=== PATIENT | female | born 1990 | race Caucasian/White ===

== ENCOUNTER 2016-07-27 10:13 | Emergency (ER) | payer OTHER ==
--- NOTE | 2016-07-27 11:54 | ED CLINICAL REPORT ---
Clinical Report - Physicians/Mid Levels [facility] [address] [place] [place] [address] 07/27/2016 10:14 Patient: SKY BETH Time Seen: 10:48. Arrived- By private vehicle. Historian- patient. HISTORY OF PRESENT ILLNESS Chief Complaint: "FLU". Is still present. It was abrupt in onset and has been constant. The illness is described as moderate. The patient has had a cough, nasal congestion, chills and muscle aches. Additional history - The patient has had contact with a sick mother and father. They have had similar symptoms. Similar symptoms previously: None. REVIEW OF SYSTEMS No chills, fever or sweats. All systems otherwise negative, except as recorded above. PAST HISTORY Problems: Sick Contact. Pneumonia. Medications: None. Allergies: No Known Drug Allergy. SOCIAL HISTORY Current every day light tobacco smoker (cigarette)- less than 1/2 a pack per day. History of occasional drug use: marijuana. No alcohol use. FAMILY HISTORY Both of her parents were diagnosed with Influenza recently. ADDITIONAL NOTES The nursing notes have been reviewed. PHYSICAL EXAM Vital Signs: 07/27/2016 10:21 BP: 121/79. HR: 103. RR: 20. O2 saturation: 100%. Temp: 99.3 F. Pain level now: 3/10. Have been reviewed. Appearance: Alert. Eyes: Pupils equal, round and reactive to light. ENT: Minimal, thin, clear nasal discharge present. Pharynx normal. Uvula midline. Neck: Normal inspection. Neck supple. No meningeal signs or lymphadenopathy. CVS: Normal heart rate and rhythm. Heart sounds normal. Respiratory: No respiratory distress. Breath sounds normal. Abdomen: Soft and nontender. No organomegaly. Back: Normal inspection. Skin: Skin warm and dry. Normal skin color. Normal skin turgor. Extremities: Extremities exhibit normal ROM. No calf tenderness. No lower extremity edema. 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 PROGRESS AND PROCEDURES Course of Care: I reviewed the results the patient's lab with her. She says that both her parents had positive tests performed. We discussed the potential benefits and risks of treatment for influenza I also encouraged her in the future to pursue immunizations. I provided her with a prescription for Tamiflu and we reviewed the potential benefits and risks of that. Given her parents diagnosis and her concern of exposing her children, I have provided her with a prescription of the medication in case today's test was a false negative. Patient/family counseled. Disposition: Discharged. Condition: stable. CLINICAL IMPRESSION Acute upper respiratory infection. INSTRUCTIONS Drink plenty of fluids. Warnings: GENERAL WARNINGS: Return or contact your physician immediately if your condition worsens or changes unexpectedly, if not improving as expected, or if other problems arise. Prescription Medications: Tamiflu 75 mg: take 1 capsule orally every 12 hours for 5 days. Dispense ten (10). No refills. Substitution is permissible. Follow-up: Follow up with your doctor in five days if not better. Call for an appointment. Understanding of the discharge instructions verbalized by patient. (Electronically signed by Yogi Garza MD 07/27/2016 18:15)
--- NOTE | 2016-07-27 11:54 | ED ORDER SUMMARY ---
..... Patient: SKY BETH OrderSheet [facility] VisitID: [id number] [address] [place] [address] 25y, F Registration Date/Time: 07/27/2016 ORDER SHEET Weight: 56.2 kg (stated) Allergies: No Known Drug Allergy GENERAL ORDERS: Rapid Influenza Screen (Nasal Pharyngeal) (GUM MAKER) Urgent (10:24 07/27/2016 Armando DEUTSCH) (Ack 10:26 NHouse ER Tech1) (10:45 SStcasi R.NLeticia) MEDICATION ORDERS: IV FLUIDS: ORDER SHEET NOTES: [Electronically signed by Jolene Guerrero R.N. (12:11 07/27/2016)] [Electronically signed by Yogi Garza MD (18:15 07/27/2016)] [Electronically locked/signed by Jolene Guerrero R.N. (12:11 07/27/2016)]
--- NOTE | 2016-07-27 11:54 | ED NURSING NOTES ---
Clinical Report - Nurses [facility] [address] [place] [address] 07/27/2016 10:14 Patient: SKY BETH TRIAGE Triage time 10:21. Acuity: LEVEL 4. Chief Complaint: FEVER, COUGH and BODY ACHES and known FLU EXPOSURE. --10:25 Jolene Guerrero R.N. 10:21 07/27/16. BP: 121/79. HR: 103. RR: 20. O2 saturation: 100%. Temp: 99.3 F. Pain level now: 09/16. --10:25 Jolene Guerrero R.N. Weight: 56.2 kg stated. Height/Length: 68 inches Per Patient. BMI: 18.8. --10:23 Jolene Guerrero R.N. Medications None. --10:22 Jolene Guerrero R.N. Allergies No Known Drug Allergy. --10:22 Jolene Guerrero R.N. History Arrived by private vehicle. Historian: patient. This started yesterday. Onset. (parents both dx with flu, on Tamiflu. Pt. sx started yesterday with headache, fever, cough, congestion, nausea). She has had contact with a sick individual. She has had chest congestion, chills, fatigue, a headache and vomiting. 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 PAST MEDICAL HX: Pneumonia. No history of chronic obstructive pulmonary disease. ( No flu vaccine this year). SOCIAL HX: Current every day heavy tobacco smoker (cigarette)- less than 1 pack per day. History of drug use: marijuana. (monthly). No alcohol use. She has had contact with a sick individual. No infectious disease exposure. FALL RISK ASSESSMENT: Fall risk assessment completed. No fall risk identified. NUTRITIONAL RISK ASSESSMENT: The nutritional risk assessment revealed no deficiencies. FUNCTIONAL ASSESSMENT: Functional assessment: no impairments noted. LEARNING NEEDS ASSESSMENT: The learning needs assessment revealed no barriers. SKIN INTEGRITY ASSESSMENT: Skin integrity risk assessment completed. No skin integrity risk identified. --10:25 Jolene Guerrero R.N. PROBLEMS: Pneumonia. --10:22 Jolene Guerrero R.N. Interventions ID band on patient. Droplet isolation precautions initiated. To treatment room. --10:25 Jolene Guerrero R.N. PHYSICAL ASSESSMENT GENERAL / NEURO / PSYCH: Alert. Oriented X 4. Appears in no acute distress. HEENT: Mucous membranes are pink. RESPIRATORY: Respirations not labored. Chest nontender. Breath sounds within normal limits. CVS: Normal sinus rhythm noted. Capillary refill less than 2 seconds. Pulses within normal limits. GI / : The patient has had nausea. Abdomen soft and nontender. SKIN: Skin intact. Skin is warm and dry. Hot skin. --10:40 Jolene Guerrero R.N. NURSING PROGRESS NOTES Head of bed elevated. Reassurance given. Patient ID band checked for patient name and birthdate: patient confirmed. Flu swab obtained by RN via nasal swab. Labeled in the presence of the patient and sent to lab. Patient identifiers checked. Call light placed in reach. Side rails up. Bed placed in lowest position. Brakes of bed on. Patient waiting for evaluation. --10:30 Jolene Guerrero R.N. DISPOSITION / DISCHARGE Departure time: 12:01. Condition at departure: stable. Reviewed medication(s) side effects information. Prescription(s) given to the patient. Patient verbalized understanding. Written instructions provided in Irish. The patient was discharged home. She left the Emergency Department ambulatory and via private vehicle. Patient driving. --12:01 Jolene Guerrero R.N. 12:00 07/27/16. BP: 112/70. HR: 96. RR: 20. O2 saturation: 98%. Temp: 99.9 F. Pain level now: 0/10. --12:01 Jolene Guerrero R.N. Locked/Released at 07/27/2016 12:11 by Jloene Guerrero R.N.
--- NOTE | 2016-07-27 11:54 | ED NURSING NOTES ---
Clinical Report - Nurses [facility] [address] [place] [address] 07/27/2016 10:14 Patient: SKY BETH TRIAGE Triage time 10:21. Acuity: LEVEL 4. Chief Complaint: FEVER, COUGH and BODY ACHES and known FLU EXPOSURE. --10:25 Jolene Guerrero R.N. 10:21 07/27/16. BP: 121/79. HR: 103. RR: 20. O2 saturation: 100%. Temp: 99.3 F. Pain level now: 09/16. --10:25 Jolene Guerrero R.N. Weight: 56.2 kg stated. Height/Length: 68 inches Per Patient. BMI: 18.8. --10:23 Jolene Guerrero R.N. Medications None. --10:22 Jolene Guerrero R.N. Allergies No Known Drug Allergy. --10:22 Jolene Guerrero R.N. History Arrived by private vehicle. Historian: patient. This started yesterday. Onset. (parents both dx with flu, on Tamiflu. Pt. sx started yesterday with headache, fever, cough, congestion, nausea). She has had contact with a sick individual. She has had chest congestion, chills, fatigue, a headache and vomiting. 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 PAST MEDICAL HX: Pneumonia. No history of chronic obstructive pulmonary disease. ( No flu vaccine this year). SOCIAL HX: Current every day heavy tobacco smoker (cigarette)- less than 1 pack per day. History of drug use: marijuana. (monthly). No alcohol use. She has had contact with a sick individual. No infectious disease exposure. FALL RISK ASSESSMENT: Fall risk assessment completed. No fall risk identified. NUTRITIONAL RISK ASSESSMENT: The nutritional risk assessment revealed no deficiencies. FUNCTIONAL ASSESSMENT: Functional assessment: no impairments noted. LEARNING NEEDS ASSESSMENT: The learning needs assessment revealed no barriers. SKIN INTEGRITY ASSESSMENT: Skin integrity risk assessment completed. No skin integrity risk identified. --10:25 Jolene Guerrero R.N. PROBLEMS: Pneumonia. --10:22 Jolene Guerrero R.N. Interventions ID band on patient. Droplet isolation precautions initiated. To treatment room. --10:25 Jolene Guerrero R.N. PHYSICAL ASSESSMENT GENERAL / NEURO / PSYCH: Alert. Oriented X 4. Appears in no acute distress. HEENT: Mucous membranes are pink. RESPIRATORY: Respirations not labored. Chest nontender. Breath sounds within normal limits. CVS: Normal sinus rhythm noted. Capillary refill less than 2 seconds. Pulses within normal limits. GI / : The patient has had nausea. Abdomen soft and nontender. SKIN: Skin intact. Skin is warm and dry. Hot skin. --10:40 Jolene Guerrero R.N. NURSING PROGRESS NOTES Head of bed elevated. Reassurance given. Patient ID band checked for patient name and birthdate: patient confirmed. Flu swab obtained by RN via nasal swab. Labeled in the presence of the patient and sent to lab. Patient identifiers checked. Call light placed in reach. Side rails up. Bed placed in lowest position. Brakes of bed on. Patient waiting for evaluation. --10:30 Jolene Guerrero R.N. DISPOSITION / DISCHARGE Departure time: 12:01. Condition at departure: stable. Reviewed medication(s) side effects information. Prescription(s) given to the patient. Patient verbalized understanding. Written instructions provided in Urdu. The patient was discharged home. She left the Emergency Department ambulatory and via private vehicle. Patient driving. --12:01 Jolene Guerrero R.N. 12:00 07/27/16. BP: 112/70. HR: 96. RR: 20. O2 saturation: 98%. Temp: 99.9 F. Pain level now: 0/10. --12:01 Jolene Guerrero R.N. Locked/Released at 07/27/2016 12:11 by Jolene Guerrero R.N.
--- NOTE | 2016-07-27 11:54 | ED CLINICAL REPORT ---
Clinical Report - Physicians/Mid Levels [facility] [address] [place] [place] [address] 07/27/2016 10:14 Patient: SKY BETH Time Seen: 10:48. Arrived- By private vehicle. Historian- patient. HISTORY OF PRESENT ILLNESS Chief Complaint: "FLU". Is still present. It was abrupt in onset and has been constant. The illness is described as moderate. The patient has had a cough, nasal congestion, chills and muscle aches. Additional history - The patient has had contact with a sick mother and father. They have had similar symptoms. Similar symptoms previously: None. REVIEW OF SYSTEMS No chills, fever or sweats. All systems otherwise negative, except as recorded above. PAST HISTORY Problems: Sick Contact. Pneumonia. Medications: None. Allergies: No Known Drug Allergy. SOCIAL HISTORY Current every day light tobacco smoker (cigarette)- less than 1/2 a pack per day. History of occasional drug use: marijuana. No alcohol use. FAMILY HISTORY Both of her parents were diagnosed with Influenza recently. ADDITIONAL NOTES The nursing notes have been reviewed. PHYSICAL EXAM Vital Signs: 07/27/2016 10:21 BP: 121/79. HR: 103. RR: 20. O2 saturation: 100%. Temp: 99.3 F. Pain level now: 3/10. Have been reviewed. Appearance: Alert. Eyes: Pupils equal, round and reactive to light. ENT: Minimal, thin, clear nasal discharge present. Pharynx normal. Uvula midline. Neck: Normal inspection. Neck supple. No meningeal signs or lymphadenopathy. CVS: Normal heart rate and rhythm. Heart sounds normal. Respiratory: No respiratory distress. Breath sounds normal. Abdomen: Soft and nontender. No organomegaly. Back: Normal inspection. Skin: Skin warm and dry. Normal skin color. Normal skin turgor. Extremities: Extremities exhibit normal ROM. No calf tenderness. No lower extremity edema. LABS, X-RAYS, AND EKG Laboratory Tests: Rapid Influenza Screen: (NOHEMI: 07/27/2016 10:35) ( MsgRcvd 07/27/2016 11:01) Final results SPECIMEN DESCRIPTION: MOUNTER CLARINETS Test Result Flag Units (Reference) RAPID INFLUENZA SCREEN DATE: 07/27/16 INFLUENZA A: NEGATIVE SCREEN FOR INFLUENZA A INFLUENZA B: NEGATIVE SCREEN FOR INFLUENZA B . PROGRESS AND PROCEDURES Course of Care: I reviewed the results the patient's lab with her. She says that both her parents had positive tests performed. We discussed the potential benefits and risks of treatment for influenza I also encouraged her in the future to pursue immunizations. I provided her with a prescription for Tamiflu and we reviewed the potential benefits and risks of that. Given her parents diagnosis and her concern of exposing her children, I have provided her with a prescription of the medication in case today's test was a false negative. Patient/family counseled. Disposition: Discharged. Condition: stable. CLINICAL IMPRESSION Acute upper respiratory infection. INSTRUCTIONS Drink plenty of fluids. Warnings: GENERAL WARNINGS: Return or contact your physician immediately if your condition worsens or changes unexpectedly, if not improving as expected, or if other problems arise. Prescription Medications: Tamiflu 75 mg: take 1 capsule orally every 12 hours for 5 days. Dispense ten (10). No refills. Substitution is permissible. Follow-up: Follow up with your doctor in five days if not better. Call for an appointment. Understanding of the discharge instructions verbalized by patient. (Electronically signed by Yogi Garza MD 07/27/2016 18:15)
--- NOTE | 2016-07-27 11:54 | ED ORDER SUMMARY ---
..... Patient: SKY BETH OrderSheet [facility] VisitID: [id number] [address] [place] [place] [address] 25y, F Registration Date/Time: 07/27/2016 ORDER SHEET Weight: 56.2 kg (stated) Allergies: No Known Drug Allergy GENERAL ORDERS: Rapid Influenza Screen (Nasal Pharyngeal) (RISK LEAD) Urgent (10:24 07/27/2016 Armando DEUTSCH) (Ack 10:26 NHouse ER Tech1) (10:45 SStcasi R.NLeticia) MEDICATION ORDERS: IV FLUIDS: ORDER SHEET NOTES: [Electronically signed by Jolene Guerrero R.N. (12:11 07/27/2016)] [Electronically signed by Yogi Garza MD (18:15 07/27/2016)] [Electronically locked/signed by Jolene Guerrero R.N. (12:11 07/27/2016)]
--- NOTE | 2016-07-27 18:15 | ED DISCHARGE INSTRUCTIONS ---
Patient: SKY BETH General Instructions [facility] VisitID: [id number] [place] [address] 25y, F Registration Date/Time: 07/27/2016 Acute upper respiratory infection. INSTRUCTIONS Drink plenty of fluids. Warnings: GENERAL WARNINGS: Return or contact your physician immediately if your condition worsens or changes unexpectedly, if not improving as expected, or if other problems arise. Prescription Medications: Tamiflu 75 mg: take 1 capsule orally every 12 hours for 5 days. Dispense ten (10). No refills. Substitution is permissible. Follow-up: Follow up with your doctor in five days if not better. Call for an appointment. Understanding of the discharge instructions verbalized by patient. ADDITIONAL INFORMATION Viral Respiratory Illness [Adult] You have an Upper Respiratory Illness (URI) caused by a virus. This illness is contagious during the first few days. It is spread through the air by coughing and sneezing or by direct contact (touching the sick person and then touching your own eyes, nose or mouth). Most viral illnesses go away within 7-10 days with rest and simple home remedies. Sometimes, the illness may last for several weeks. Antibiotics will not kill a virus and are generally not prescribed for this condition. Home Care: 1) If symptoms are severe, rest at home for the first 2-3 days. When you resume activity, don't let yourself get too tired. 2) Avoid being exposed to cigarette smoke (yours or others). 3) Tylenol (acetaminophen) or ibuprofen (Advil, Motrin) will help fever, muscle aching and headache. (Persons under 18 with fever should not take aspirin since this may cause liver damage.) 4) Your appetite may be poor, so a light diet is fine. Avoid dehydration by drinking 6-8 glasses of fluids per day (water, soft drinks, juices, tea, soup). Extra fluids will help loosen secretions in the nose and lungs. 5) Eowa-[id number] cold medicines will not shorten the length of time youre sick, but they may be helpful for the following symptoms: cough (Robitussin DM); sore throat (Chloraseptic lozenges or spray); nasal and sinus congestion (Actifed, Sudafed, Chlortrimeton). Follow Up with your doctor or as advised if you dont improve over the next week. Get Prompt Medical Attention if any of the following occur: -- Cough with lots of colored sputum (mucus) or blood in your sputum -- Chest pain, shortness of breath, wheezing or have trouble breathing -- Severe headache; face, neck or ear pain -- Fever over 100.4 F (38.0 C) for more than three days -- You cant swallow due to throat pain Oseltamivir Phosphate Oral capsule What is this medicine? OSELTAMIVIR (os el FRANKS i vir) is an antiviral medicine. It is used to prevent and to treat some kinds of influenza or the flu. It will not work for colds or other viral infections. How should I use this medicine? Take this medicine by mouth with a glass of water. Follow the directions on the prescription label. Start this medicine at the first sign of flu symptoms. You can take it with or without food. If it upsets your stomach, take it with food. Take your medicine at regular intervals. Do not take your medicine more often than directed. Take all of your medicine as directed even if you think you are better. Do not skip doses or stop your medicine early. Talk to your welder first class regarding the use of this medicine in children. While this drug may be prescribed for children as young as 14 days for selected conditions, precautions do apply. What side effects may I notice from receiving this medicine? Side effects that you should report to your doctor or health career technical supervisor as soon as possible: allergic reactions like skin rash, itching or hives, swelling of the face, lips, or tongue anxiety, confusion, unusual behavior breathing problems hallucination, loss of contact with reality redness, blistering, peeling or loosening of the skin, including inside the mouth seizures Side effects that usually do not require medical attention (report to your doctor or health career technical supervisor if they continue or are bothersome): cough diarrhea dizziness headache nausea, vomiting stomach pain What may interact with this medicine? Interactions are not expected. What if I miss a dose? If you miss a dose, take it as soon as you remember. If it is almost time for your next dose (within 2 hours), take only that dose. Do not take double or extra doses. Where should I keep my medicine? Keep out of the reach of children. Store at room temperature between 15 and 30 degrees C (59 and 86 degrees F). Throw away any unused medicine after the expiration date. What should I tell my health care provider before I take this medicine? They need to know if you have any of the following conditions: heart disease immune system problems kidney disease liver disease lung disease an unusual or allergic reaction to oseltamivir, other medicines, foods, dyes, or preservatives or trying to get breast-feeding What should I watch for while using this medicine? Visit your doctor or health career technical supervisor for regular check ups. Tell your doctor if your symptoms do not start to get better or if they get worse. If you have the flu, you may be at an increased risk of developing seizures, confusion, or abnormal behavior. This occurs early in the illness, and more frequently in children and teens. These events are not common, but may result in accidental injury to the patient. Families and caregivers of patients should watch for signs of unusual behavior and contact a doctor or health career technical supervisor right away if the patient shows signs of unusual behavior. This medicine is not a substitute for the flu shot. Talk to your doctor each year about an annual flu shot. You have been given the following additional information: Uri, Viral, No Abx (Adult) Oseltamivir Phosphate Oral capsule (Electronically signed by Yogi Garza MD 07/27/2016 18:15)
--- NOTE | 2016-07-27 18:15 | ED MED RECONCILIATION SUMMARY ---
Patient: SKY BETH Medication Reconciliation Report [facility] VisitID: [id number] [place] [address] 25y, F Registration Date/Time: 07/27/2016 Weight: 56.2 kg Height/Length: 68 in. BMI: 18.8 ALLERGIES: No Known Drug Allergy The patient's Home Medications are listed below: NONE. The source(s) of the original Home Medication information: Not obtained. The following Medications were given to the patient in the Emergency Department: None. The following Medications were prescribed to the patient: Tamiflu 75 mg: take 1 capsule orally every 12 hours for 5 days. Dispense ten (10). No refills. Substitution is permissible. -- Yogi Garza MD
--- NOTE | 2016-07-27 18:15 | ED DISCHARGE INSTRUCTIONS ---
Patient: SKY BETH General Instructions [facility] VisitID: [id number] [place] [address] 25y, F Registration Date/Time: 07/27/2016 Acute upper respiratory infection. INSTRUCTIONS Drink plenty of fluids. Warnings: GENERAL WARNINGS: Return or contact your physician immediately if your condition worsens or changes unexpectedly, if not improving as expected, or if other problems arise. Prescription Medications: Tamiflu 75 mg: take 1 capsule orally every 12 hours for 5 days. Dispense ten (10). No refills. Substitution is permissible. Follow-up: Follow up with your doctor in five days if not better. Call for an appointment. Understanding of the discharge instructions verbalized by patient. ADDITIONAL INFORMATION Viral Respiratory Illness [Adult] You have an Upper Respiratory Illness (URI) caused by a virus. This illness is contagious during the first few days. It is spread through the air by coughing and sneezing or by direct contact (touching the sick person and then touching your own eyes, nose or mouth). Most viral illnesses go away within 7-10 days with rest and simple home remedies. Sometimes, the illness may last for several weeks. Antibiotics will not kill a virus and are generally not prescribed for this condition. Home Care: 1) If symptoms are severe, rest at home for the first 2-3 days. When you resume activity, don't let yourself get too tired. 2) Avoid being exposed to cigarette smoke (yours or others). 3) Tylenol (acetaminophen) or ibuprofen (Advil, Motrin) will help fever, muscle aching and headache. (Persons under 18 with fever should not take aspirin since this may cause liver damage.) 4) Your appetite may be poor, so a light diet is fine. Avoid dehydration by drinking 6-8 glasses of fluids per day (water, soft drinks, juices, tea, soup). Extra fluids will help loosen secretions in the nose and lungs. 5) Qetp-[id number] cold medicines will not shorten the length of time youre sick, but they may be helpful for the following symptoms: cough (Robitussin DM); sore throat (Chloraseptic lozenges or spray); nasal and sinus congestion (Actifed, Sudafed, Chlortrimeton). Follow Up with your doctor or as advised if you dont improve over the next week. Get Prompt Medical Attention if any of the following occur: -- Cough with lots of colored sputum (mucus) or blood in your sputum -- Chest pain, shortness of breath, wheezing or have trouble breathing -- Severe headache; face, neck or ear pain -- Fever over 100.4 F (38.0 C) for more than three days -- You cant swallow due to throat pain Oseltamivir Phosphate Oral capsule What is this medicine? OSELTAMIVIR (os el FRANKS i vir) is an antiviral medicine. It is used to prevent and to treat some kinds of influenza or the flu. It will not work for colds or other viral infections. How should I use this medicine? Take this medicine by mouth with a glass of water. Follow the directions on the prescription label. Start this medicine at the first sign of flu symptoms. You can take it with or without food. If it upsets your stomach, take it with food. Take your medicine at regular intervals. Do not take your medicine more often than directed. Take all of your medicine as directed even if you think you are better. Do not skip doses or stop your medicine early. Talk to your woodworking machine setter regarding the use of this medicine in children. While this drug may be prescribed for children as young as 14 days for selected conditions, precautions do apply. What side effects may I notice from receiving this medicine? Side effects that you should report to your doctor or health adult day care worker as soon as possible: allergic reactions like skin rash, itching or hives, swelling of the face, lips, or tongue anxiety, confusion, unusual behavior breathing problems hallucination, loss of contact with reality redness, blistering, peeling or loosening of the skin, including inside the mouth seizures Side effects that usually do not require medical attention (report to your doctor or health adult day care worker if they continue or are bothersome): cough diarrhea dizziness headache nausea, vomiting stomach pain What may interact with this medicine? Interactions are not expected. What if I miss a dose? If you miss a dose, take it as soon as you remember. If it is almost time for your next dose (within 2 hours), take only that dose. Do not take double or extra doses. Where should I keep my medicine? Keep out of the reach of children. Store at room temperature between 15 and 30 degrees C (59 and 86 degrees F). Throw away any unused medicine after the expiration date. What should I tell my health care provider before I take this medicine? They need to know if you have any of the following conditions: heart disease immune system problems kidney disease liver disease lung disease an unusual or allergic reaction to oseltamivir, other medicines, foods, dyes, or preservatives or trying to get breast-feeding What should I watch for while using this medicine? Visit your doctor or health adult day care worker for regular check ups. Tell your doctor if your symptoms do not start to get better or if they get worse. If you have the flu, you may be at an increased risk of developing seizures, confusion, or abnormal behavior. This occurs early in the illness, and more frequently in children and teens. These events are not common, but may result in accidental injury to the patient. Families and caregivers of patients should watch for signs of unusual behavior and contact a doctor or health adult day care worker right away if the patient shows signs of unusual behavior. This medicine is not a substitute for the flu shot. Talk to your doctor each year about an annual flu shot. You have been given the following additional information: Uri, Viral, No Abx (Adult) Oseltamivir Phosphate Oral capsule (Electronically signed by Yogi Garza MD 07/27/2016 18:15)
--- NOTE | 2016-07-27 18:15 | ED MAR SUMMARY ---
..... Medication Administration Record [facility] [address] [place], [place] [id number] Patient: SKY BETH Visit ID: [id number] 25y, F Weight: 56.2 kg Height/Length: 68 in BMI: 18.8 ALLERGIES: No Known Drug Allergy
--- NOTE | 2016-07-27 18:15 | ED MAR SUMMARY ---
..... Medication Administration Record [facility] [address] [place], [place] [id number] Patient: SKY BETH Visit ID: [id number] 25y, F Weight: 56.2 kg Height/Length: 68 in BMI: 18.8 ALLERGIES: No Known Drug Allergy
--- NOTE | 2016-07-27 18:15 | ED MED RECONCILIATION SUMMARY ---
Patient: SKY BETH Medication Reconciliation Report [facility] VisitID: [id number] [place] [address] 25y, F Registration Date/Time: 07/27/2016 Weight: 56.2 kg Height/Length: 68 in. BMI: 18.8 ALLERGIES: No Known Drug Allergy The patient's Home Medications are listed below: NONE. The source(s) of the original Home Medication information: Not obtained. The following Medications were given to the patient in the Emergency Department: None. The following Medications were prescribed to the patient: Tamiflu 75 mg: take 1 capsule orally every 12 hours for 5 days. Dispense ten (10). No refills. Substitution is permissible. -- Yogi Garza MD
== END 2016-07-27 12:00 | disposition home or self-care (01) ==
LOC: ED SRH 10:13
DX: J06.9 Acute upper respiratory infection, unspecified (principal); Z20.828 Contact with and (suspected) exposure to other viral communicable diseases
CPT/HCPCS: 91400

== ENCOUNTER 2016-12-15 22:32 | Emergency (ER) | payer OTHER ==
--- NOTE | 2016-12-16 02:35 | ED ORDER SUMMARY ---
..... Patient: SKY BETH OrderSheet [facility] VisitID: [id number] [place] [address] 26y, F Registration Date/Time: 12/15/2016 ORDER SHEET Weight: 58.9 kg (stated) Allergies: None GENERAL ORDERS: Home Care Assistant (Continuous) (23:57 12/15/2016 Martin DEUTSCH) (Ack 0:02 LMuller) (0:11 ASchmuck) CBC w Diff Urgent (23:58 12/15/2016 Martin DEUTSCH) (Ack 0:02 LMuller) (0:31 ASchmuck) CMP Urgent (:12/15/2016 Martin DEUTSCH) (Ack 0:02 LMuller) (0:31 ASchmuck) UA-Culture if indicated Urgent (:12/15/2016 Martin DEUTSCH) (Ack 0:02 LMuller) (1:23 Jaswinder R.N.) Urine Urgent (23:12/15/2016 Martin DEUTSCH) (Ack 0:02 LMuller) (1:23 Jaswinder R.N.) Vitals - Orthostatic (23:58 12/15/2016 Martin DEUTSCH) (Ack 0:02 LMuller) (0:11 ASchmuck) EKG - ER Stat (00:20 12/16/2016 Martin DEUTSCH) (Ack 0:21 AMcQuoid ER Tech1) (0:29 LMuller) MEDICATION ORDERS: Zofran ODT PO 4 mg (NOW) (23:09 12/15/2016 ASchmuck per protocol) (23:09 ASchmuck) Hydrocodone-APAP PO 5/325 mg (2 tabs) (02:27 12/16/2016 Martin DEUTSCH) (Ack 2:30 HSoule) (2:55 Jaswinder R.N.) Zofran ODT PO 4 mg (NOW) (02:12/16/2016 Martin DEUTSCH) (Ack 2:30 HSoule) (2:55 Jaswinder R.N.) IV FLUIDS: ORDER SHEET NOTES: [Electronically signed by Cristian Briseno R.N. (02:58 12/16/2016)] [Electronically signed by Dallas Lebron MD (14:21 12/19/2016)] [Electronically locked/signed by Cristian Briseno R.N. (02:58 12/16/2016)]
--- NOTE | 2016-12-16 02:35 | ED ORDER SUMMARY ---
..... Patient: SKY BETH OrderSheet [facility] VisitID: [id number] [place] [address] 26y, F Registration Date/Time: 12/15/2016 ORDER SHEET Weight: 58.9 kg (stated) Allergies: None GENERAL ORDERS: Transit Worker (Continuous) (23:57 12/15/2016 Martin DEUTSCH) (Ack 0:02 LMuller) (0:11 ASchmuck) CBC w Diff Urgent (23:58 12/15/2016 Martin DEUTSCH) (Ack 0:02 LMuller) (0:31 ASchmuck) CMP Urgent (:12/15/2016 Martin DEUTSCH) (Ack 0:02 LMuller) (0:31 ASchmuck) UA-Culture if indicated Urgent (:12/15/2016 Martin DEUTSCH) (Ack 0:02 LMuller) (1:23 Jaswinder R.N.) Urine Urgent (23:12/15/2016 Martin DEUTSCH) (Ack 0:02 LMuller) (1:23 Jasiwnder R.N.) Vitals - Orthostatic (23:58 12/15/2016 Martin DEUTSCH) (Ack 0:02 LMuller) (0:11 ASchmuck) EKG - ER Stat (00:20 12/16/2016 Martin DEUTSCH) (Ack 0:21 AMcQuoid ER Tech1) (0:29 LMuller) MEDICATION ORDERS: Zofran ODT PO 4 mg (NOW) (23:09 12/15/2016 ASchmuck per protocol) (23:09 ASchmuck) Hydrocodone-APAP PO 5/325 mg (2 tabs) (02:27 12/16/2016 Martin DEUTSCH) (Ack 2:30 HSoule) (2:55 Jaswinder R.N.) Zofran ODT PO 4 mg (NOW) (02:12/16/2016 Martin DEUTSCH) (Ack 2:30 HSoule) (2:55 Jaswinder R.N.) IV FLUIDS: ORDER SHEET NOTES: [Electronically signed by Cristian Briseno R.N. (02:58 12/16/2016)] [Electronically signed by Dallas Lebron MD (14:21 12/19/2016)] [Electronically locked/signed by Cristian Briseno R.N. (02:58 12/16/2016)]
--- NOTE | 2016-12-16 02:35 | ED NURSING NOTES ---
Clinical Report - Nurses [facility] [address] [place] [address] 12/15/2016 22:34 Patient: SKY BETH TRIAGE 22:45 12/15/16. BP: 110/79. HR: 100. RR: 17. O2 saturation: 99%. Temp: 98.2 F. Pain level now 02/16. --22:45 Cherelle Chun 22:45 12/15/16. --23:15 Cherelle Chun Triage time 22:38 Dec 15 2016. Acuity: LEVEL 3. Chief Complaint: ANXIETY. 22:45 12/15/16. Alert. No acute distress. SEPSIS SCREEN: Sepsis Screen. Negative (no infection suspected/documented). CHANTELLE COMA SCORE: [place] Coma Scale: 15- eyes open spontaneously (4); best verbal response- oriented x 4 (5); best motor response- obeys commands (6). --22:45 Cherelle Chun 22:46 12/15/16. --22:46 Cherelle Chun. Weight: 58.9 kg stated. Height/Length: 68 inches Per Patient. BMI: 19.7. --22:43 Cherelle Chun. Medications ClonazePAM Oral 0.5 mg, as needed. --22:41 Cherelle Chun. Medication/allergy information source: the patient. --22:45 Cherelle Chun. Allergies None. --22:41 Cherelle Chun. History Arrived by private vehicle. Historian: patient. Accompanied by mother. Primary physician ([facility]). Onset. (Monday). She has had anxiety and describes feelings of depression. Denies sleeping difficulties or having hallucinations. Treatment LADIES' LOCKER ROOM ATTENDANT: (Took half a dose of clonazepam). PAST MEDICAL HX: Anxiety. No history of diabetes mellitus or hypertension. No history of psychiatric illness. Immunizations: up-to-date. Uses an intrauterine device. SOCIAL HX: Heavy tobacco smoker (cigarette)- 1 pack per day. Occasional alcohol use. History of drug use: marijuana. (few times a week). FALL RISK ASSESSMENT: Fall risk assessment completed. No fall risk identified. NUTRITIONAL RISK ASSESSMENT: The nutritional risk assessment revealed no deficiencies. FUNCTIONAL ASSESSMENT: Functional assessment: no impairments noted. LEARNING NEEDS ASSESSMENT: The learning needs assessment revealed no barriers. SKIN INTEGRITY ASSESSMENT: Skin integrity risk assessment completed. No skin integrity risk identified. --22:45 Cherelle Chun SELF HARM ASSESSMENT: A self harm assessment was performed. The patient answered "yes" to the question "Have you recently felt down, depressed, or hopeless?" and "no" to the question "Have you noticed less interest or pleasure in doing things?", "Do you have thoughts of harming or killing yourself?", "Are you here because you tried to hurt yourself?", "Have you ever tried to hurt yourself before today?", "Have you recently had thoughts about harming or killing others?" and "Do you have any dangerous items in your possession?". Family at bedside. --22:46 Cherelle Chun ( Patient reports anxiety attacks that started on Monday. Had previously had anxiety problems, but hadn't for years. Patient is from , who left her. She has been on a "break" from her kids for the past two weeks and was supposed to fly out tonight. Patient reports passing out from anxiety, which has happened to her before. Mother reports "seizure like activity" that occurs with panic attacks. Patient reports current headache and nausea, which she often gets with panic attacks, but headache is worse this time.). --23:15 Cherelle Chun. PROBLEMS: Anxiety Reaction. URI. Sick Contact. Pneumonia. --22:41 Cherelle Chun. Assessment The patient states feels the same. --22:45 Cherelle Chun. Interventions ID band on patient. --22:45 Cherelle Chun. PHYSICAL ASSESSMENT 22:45 12/15/16. Ambulatory to room. GENERAL / NEURO / PSYCH: Alert. Oriented X 4. Appears in no acute distress. Speech within normal limits. Patient's mood/affect appears flat. Poor eye contact. Patient appears calm and cooperative. Patient appears well-nourished and neat and clean. RESPIRATORY: Respirations not labored. CVS: Capillary refill less than 2 seconds. GI / : Abdomen soft and nontender. SKIN: Skin intact. Skin is warm and dry. Skin color is within normal limits. --22:45 Cherelle Chun. NURSING PROGRESS NOTES The plan of care for this patient has been created. Pulse oximeter and NIBP monitor placed on patient; monitor alarms on. Patient gowned. Head of bed elevated. Reassurance given. Two patient identifiers checked. Call light placed in reach. Side rails up x 1. Bed placed in lowest position. Brakes of bed on. Patient ready for evaluation- chart flagged and ED physician and AUTOMOTIVE SERVICE CONSULTANT notified. --22:45 Cherelle Chun 23:12/15/2016 Zofran ODT (Ondansetron) PO Oral Disintegrating Tablets 4 mg given. Allergies verified and confirmed 5 rights. --23: Cherelle Chun campus monitor, pulse oximeter and NIBP monitor placed on patient; monitor alarms on. --00:13 Cherelle Chun 00:13 12/16/16. BP: 115/88 taken while standing. HR: 100. O2 saturation: 100% on room air. 00:06 12/16/16. BP: 109/80 taken while sitting. HR: 73. O2 saturation: 100% on room air. 00:04 12/16/16. BP: 109/73 taken while lying. HR: 76. O2 saturation: 100% on room air. --00:13 Cherelle Chun 00:05 12/16/16. ( Patient notified of need for urine sample. States that she is unable to at this time.). --00:21 Cherelle Chun 00:31. EKG was performed by a tech and shown to the ED physician. --00:31 Surekha Pride ER Tech1 00:26 12/16/2016 Site #1 started via IV in the left antecubital space with an 20g angiocath, with aseptic technique and good blood return; one attempt. Blood drawn: rainbow set. Labeled in the presence of the patient and sent to the lab. Saline lock flushed with 10 mL saline. --00:31 Cherelle Chun 01:12/16/16. Care transferred and report given (Cristian). --01: Jett Chunyssa 01:23 12/16/16. BP: 95/68. HR: 70. RR: 16. O2 saturation: 100%. --01:27 Cristian Briseno R.N. Cardiac rhythm: normal sinus rhythm. ( Patient was up to the BR to void, steady gait and in no distress. Urine sent to the lab. Patient settled back to bed, with VS stable. Pt's mom at the bedside.). GENERAL / NEURO / PSYCH: Alert. Oriented X 4. Patient appears calm and cooperative. Affect appears normal. RESPIRATORY: No respiratory distress. SKIN: Skin is warm and dry. Skin color within normal limits. --01:27 Cristian Briseno R.N. 02:50 12/16/2016 Hydrocodone-APAP (Hydrocodone-Acetaminophen) PO 5/325 mg Tablets 1 tab given. Allergies verified, confirmed 5 rights and sedative warning given to the patient and patient's family. --02:55 Cristian Briseno R.N. 02:50 12/16/2016 Zofran ODT (Ondansetron) PO Oral Disintegrating Tablets 4 mg given. Allergies verified and confirmed 5 rights. --02:55 Cristian Briseno R.N. 02:51 12/16/2016 Site #1 removed upon discharge. Manual pressure applied. --02:56 Cristian Briseno R.N. DISPOSITION / DISCHARGE Condition at departure: improved. No learning barriers present. Discharge instructions provided and reviewed with the patient. Reviewed medication(s) side effects, precautions, dosing and course information. Reviewed referral to a primary care physician. Patient verbalized understanding. Written instructions provided in Malian. The patient was discharged home and accompanied by parent. She left the Emergency Department ambulatory and via private vehicle. Parent driving. --02:57 Cristian Briseno R.N. 02:56 12/16/16. BP: 101/68. HR: 75. RR: 16. O2 saturation: 100%. Temp: 97.9 F. Pain level now: 0/10. --02:57 Finn, Christopher, R.N. Departure time: 02:58. --02:58 Cristian Briseno R.N. Locked/Released at 12/16/2016 2:58 by Cristian Briseno R.N.
--- NOTE | 2016-12-16 02:35 | ED CLINICAL REPORT ---
Clinical Report - Physicians/Mid Levels [facility] [address] [place] [address] 12/15/2016 22:34 Patient: SKY BETH Time Seen: 23:33. Arrived- By private vehicle. Historian- patient and family. HISTORY OF PRESENT ILLNESS Chief Complaint: (ANXIETY AND SYNCOPE). This started today. (Ms Beth has a long history of anxiety and syncope. She has had an extensive work up for syncope including EEGs and EKGs. No cause has been found. Today has been a high stress day. She was due to fly to the [facility] to receive her children from a visit with her estranged . She felt her heart race, she began to shake, she passed out and had abnormal movements. He mother describes this as a seizure. There was no postictal state. She was completely normal in a minute or two. There was no incontinence.). (This afternoon, shaking, heart races, pass out (has a seizure) Syncopal episode - normal in five.). No recent alcohol consumption. The patient has had anxiety. No anger or self-injury inflicted. No injury is present. Additional history - Has fainting spells - signicant HELLER EEG, and more. This week 3 near syncope episodes and 1 syncope To abort an episode she lays down, relaxes, counts objects,. REVIEW OF SYSTEMS Last normal menstrual period- Jul. Uses an intrauterine device. She has had a moderate headache (Bifrontal , gradual onset). No chest pain, palpitations, abdominal pain, diarrhea or black stools. No sore throat, cough or urinary frequency. She has had vomiting (lots of dry heaving). Urinated 5 times. PAST HISTORY ( PCP: Dr Wright [facility] No PE DVT). SOCIAL HISTORY [facility] 2 kids. FAMILY HISTORY Negative. (No PE or DVT except for grandfather in 60s). ADDITIONAL NOTES The nursing notes have been reviewed. PHYSICAL EXAM Vital Signs: 12/16/2016 02:56 BP: 101/68. HR: 75. RR: 16. O2 saturation: 100%. Temp: 97.9 F. Pain level now: 0/10. 12/16/2016 01:23 BP: 95/68. HR: 70. RR: 16. O2 saturation: 100%. 12/16/2016 00:13 BP: 115/88. HR: 100. O2 saturation: 100%. 12/16/2016 00:06 BP: 109/80. HR: 73. O2 saturation: 100%. 12/16/2016 00:04 BP: 109/73. HR: 76. O2 saturation: 100%. 12/15/2016 22:45 BP: 110/79. HR: 100. RR: 17. O2 saturation: 99%. Temp: 98.2 F. Appearance: Alert. No acute distress. Appearance is normal. Eyes: Pupils equal, round and reactive to light. Neck: Normal inspection. Neck supple. CVS: Normal heart rate and rhythm. Heart sounds normal. Respiratory: Breath sounds normal. Chest nontender. Abdomen: Soft and nontender. Back: No tenderness. Skin: Skin warm. Normal skin color. Extremities: Extremities exhibit normal ROM. No lower extremity edema. Psych / Neuro: Mood and affect normal. Speech normal. Cognition normal. Thought process and content normal. Insight and judgement normal. Cranial nerves normal (as tested). Normal gait. No motor deficit. No sensory deficit. LABS, X-RAYS, AND EKG EKG: No acute process. No acute ischemia. Laboratory Tests: CBC w Diff: (NOHEMI: 12/16/2016 00:29) ( MsgRcvd 12/16/2016 00:43) Final results Test Result Flag Units (Reference) WHITE BLOOD COUNT 9.4 K/uL (4.5-11.5) RED BLOOD COUNT 4.43 M/uL (4.00-5.20) HEMOGLOBIN 13.3 gm/dL (12.0-16.0) HEMATOCRIT 39.0 % (36.0-46.0) MEAN CELL VOLUME 88 fL (80-100) MEAN CORPUSCULAR HGB 30 pg (26-34) MEAN CORPUSCULAR HGB CONC 34 g/dL (31-37) RED CELL DISTRIBUTION WIDTH 13.5 % (11.6-14.8) PLATELET COUNT 240 K/uL (150-400) NEUTROPHIL % 59.5 % (50-75) LYMPH % 31.3 % (25-40) MONO % 6.0 % (3-14) EOSINOPHIL % 2.5 % (0-4) BASOPHIL % 0.7 % (0-2) CMP: (NOHEMI: 12/16/2016 00:29) ( [facility] 12/16/2016 00:51) Final results Test Result Flag Units (Reference) GLUCOSE 104 mg/dL (70-110) BUN 17 mg/dL (7-18) CREATININE 0.9 mg/dL (0.6-1.3) Estimated GFR >60 mL/min Estimated GFR- >60 mL/min Note: Persistent reduction over 3 months in eGFR<60 mL/min/1.73 m2 defines CKD. Patients with eGFR values>=60 mL/min/1.73 m2 may also have CKD if evidence ofpersistent proteinuria. Additional information may be foundat [email or web address].org. SODIUM 141 mmol/L (136-145) POTASSIUM 3.8 mmol/L (3.5-5.1) CHLORIDE 106 mmol/L (98-107) CARBON DIOXIDE 24 mmol/L (21-32) CALCIUM 8.9 mg/dL (8.5-10.1) TOTAL PROTEIN 7.3 g/dL (6.4-8.2) ALBUMIN 3.9 g/dL (3.3-5.0) BILIRUBIN, TOTAL 0.3 mg/dL (0.0-1.0) ALKALINE PHOSPHATASE 50 U/L (46-116) AST (SGOT) 14 L U/L (15-37) ALT (SGPT) 21 U/L (12-78) UA-Culture if indicated: (NOHEMI: 12/15/2016 01:15) ( [facility] 12/16/2016 01:37) Final results Test Result Flag Units (Reference) URINE COLOR YELLOW URINE APPEARANCE CLEAR URINE GLUCOSE NEGATIVE (NEGATIVE) URINE BILIRUBIN NEGATIVE (NEGATIVE) URINE KETONE NEGATIVE (NEGATIVE) URINE SPECIFIC GRAVITY 1.015 (1.010-1.030) URINE PH 6.0 (5.0-8.0) URINE PROTEIN NEGATIVE (NEGATIVE) URINE UROBILINOGEN 0.2 EU/dL (0.2-1.0) URINE NITRITE NEGATIVE (NEGATIVE) URINE BLOOD NEGATIVE (NEGATIVE) URINE LEUK ESTERASE NEGATIVE (NEGATIVE) URINE RBC NONE SEEN rbc/hpf (0-1) URINE WBC RARE wbc/hpf (0-1) URINE EPITHELIAL CELLS RARE EPI/hpf (0-5) URINE BACTERIA NONE SEEN (NONE SEEN) URINE COMMENT CULT NOT INDICATED URINE CULTURES ARE SET-UP BASED ON THE FOLLOWING CRITERIA:POSITIVE NITRITEPOSITIVE LEUKOCYTE ESTERASEGREATER THAN 10 WHITE BLOOD CELLSMODERATE (2+) OR GREATER BACTERIA Urine: (NOHEMI: 12/15/2016 01:15) ( MsgRcvd 12/16/2016 01:31) Final results Test Result Flag Units (Reference) URINE NEGATIVE . PROGRESS AND PROCEDURES Course of Care: RE headache, this is modest in severity and gradual in onset. This is not SAH or ICH. There is no evidence of ectopic, volume loss, arrhythmia, seizure, or bleeding. Pt has no risk factors for PE and Wells PE score is 0. I considered DDimer but believe the risk of false positive Ddimer requiring high radiation imaging study is greater than the potential for missed PE. No evidence of toxic or metabolic event. Although not directly provable the most likely cause of today's episode is anxiety resulting in hyperventilation resulting in syncope. Wells clinical prediction rule (PE): No clinical symptoms of DVT, other diagnosis less likely than PE, immobilization or surgery within 4wks, previous DVT or PE or hemoptysis. No malignancy. Heart rate less than 100 per minute. CLINICAL IMPRESSION Syncope. Possible hyperventilation syndrome INSTRUCTIONS (SLOW SHALLOW BREATHS NOT DEEP BREATHS). Prescription Medications: Zofran 4 mg: Take 1 orally every six hours as needed for nausea/vomiting. Dispense ten (10). No refills. Substitution is permissible. Follow-up: Follow up with your doctor in five days. Understanding of the discharge instructions verbalized by patient and family. (Electronically signed by Dallas Lebron MD 12/19/2016 14:21)
--- NOTE | 2016-12-16 02:35 | ED CLINICAL REPORT ---
Clinical Report - Physicians/Mid Levels [facility] [address] [place] [address] 12/15/2016 22:34 Patient: SKY BETH Time Seen: 23:33. Arrived- By private vehicle. Historian- patient and family. HISTORY OF PRESENT ILLNESS Chief Complaint: (ANXIETY AND SYNCOPE). This started today. (Ms Beth has a long history of anxiety and syncope. She has had an extensive work up for syncope including EEGs and EKGs. No cause has been found. Today has been a high stress day. She was due to fly to the [facility] to receive her children from a visit with her estranged . She felt her heart race, she began to shake, she passed out and had abnormal movements. He mother describes this as a seizure. There was no postictal state. She was completely normal in a minute or two. There was no incontinence.). (This afternoon, shaking, heart races, pass out (has a seizure) Syncopal episode - normal in five.). No recent alcohol consumption. The patient has had anxiety. No anger or self-injury inflicted. No injury is present. Additional history - Has fainting spells - signicant HELLER EEG, and more. This week 3 near syncope episodes and 1 syncope To abort an episode she lays down, relaxes, counts objects,. REVIEW OF SYSTEMS Last normal menstrual period- Jul. Uses an intrauterine device. She has had a moderate headache (Bifrontal , gradual onset). No chest pain, palpitations, abdominal pain, diarrhea or black stools. No sore throat, cough or urinary frequency. She has had vomiting (lots of dry heaving). Urinated 5 times. PAST HISTORY ( PCP: Dr Wright [facility] No PE DVT). [facility]. FAMILY HISTORY Negative. (No PE or DVT except for grandfather in 60s). ADDITIONAL NOTES The nursing notes have been reviewed. PHYSICAL EXAM Vital Signs: 12/16/2016 02:56 BP: 101/68. HR: 75. RR: 16. O2 saturation: 100%. Temp: 97.9 F. Pain level now: 0/10. 12/16/2016 01:23 BP: 95/68. HR: 70. RR: 16. O2 saturation: 100%. 12/16/2016 00:13 BP: 115/88. HR: 100. O2 saturation: 100%. 12/16/2016 00:06 BP: 109/80. HR: 73. O2 saturation: 100%. 12/16/2016 00:04 BP: 109/73. HR: 76. O2 saturation: 100%. 12/15/2016 22:45 BP: 110/79. HR: 100. RR: 17. O2 saturation: 99%. Temp: 98.2 F. Appearance: Alert. No acute distress. Appearance is normal. Eyes: Pupils equal, round and reactive to light. Neck: Normal inspection. Neck supple. CVS: Normal heart rate and rhythm. Heart sounds normal. Respiratory: Breath sounds normal. Chest nontender. Abdomen: Soft and nontender. Back: No tenderness. Skin: Skin warm. Normal skin color. Extremities: Extremities exhibit normal ROM. No lower extremity edema. Psych / Neuro: Mood and affect normal. Speech normal. Cognition normal. Thought process and content normal. Insight and judgement normal. Cranial nerves normal (as tested). Normal gait. No motor deficit. No sensory deficit. LABS, X-RAYS, AND EKG EKG: No acute process. No acute ischemia. Laboratory Tests: CBC w Diff: (NOHEMI: 12/16/2016 00:29) ( MsgRcvd 12/16/2016 00:43) Final results Test Result Flag Units (Reference) WHITE BLOOD COUNT 9.4 K/uL (4.5-11.5) RED BLOOD COUNT 4.43 M/uL (4.00-5.20) HEMOGLOBIN 13.3 gm/dL (12.0-16.0) HEMATOCRIT 39.0 % (36.0-46.0) MEAN CELL VOLUME 88 fL (80-100) MEAN CORPUSCULAR HGB 30 pg (26-34) MEAN CORPUSCULAR HGB CONC 34 g/dL (31-37) RED CELL DISTRIBUTION WIDTH 13.5 % (11.6-14.8) PLATELET COUNT 240 K/uL (150-400) NEUTROPHIL % 59.5 % (50-75) LYMPH % 31.3 % (25-40) MONO % 6.0 % (3-14) EOSINOPHIL % 2.5 % (0-4) BASOPHIL % 0.7 % (0-2) CMP: (NOHEMI: 12/16/2016 00:29) ( [facility] 12/16/2016 00:51) Final results Test Result Flag Units (Reference) GLUCOSE 104 mg/dL (70-110) BUN 17 mg/dL (7-18) CREATININE 0.9 mg/dL (0.6-1.3) Estimated GFR >60 mL/min Estimated GFR- >60 mL/min Note: Persistent reduction over 3 months in eGFR<60 mL/min/1.73 m2 defines CKD. Patients with eGFR values>=60 mL/min/1.73 m2 may also have CKD if evidence ofpersistent proteinuria. Additional information may be foundat [email or web address]. SODIUM 141 mmol/L (136-145) POTASSIUM 3.8 mmol/L (3.5-5.1) CHLORIDE 106 mmol/L (98-107) CARBON DIOXIDE 24 mmol/L (21-32) CALCIUM 8.9 mg/dL (8.5-10.1) TOTAL PROTEIN 7.3 g/dL (6.4-8.2) ALBUMIN 3.9 g/dL (3.3-5.0) BILIRUBIN, TOTAL 0.3 mg/dL (0.0-1.0) ALKALINE PHOSPHATASE 50 U/L (46-116) AST (SGOT) 14 L U/L (15-37) ALT (SGPT) 21 U/L (12-78) UA-Culture if indicated: (NOHEMI: 12/15/2016 01:15) ( [facility] 12/16/2016 01:37) Final results Test Result Flag Units (Reference) URINE COLOR YELLOW URINE APPEARANCE CLEAR URINE GLUCOSE NEGATIVE (NEGATIVE) URINE BILIRUBIN NEGATIVE (NEGATIVE) URINE KETONE NEGATIVE (NEGATIVE) URINE SPECIFIC GRAVITY 1.015 (1.010-1.030) URINE PH 6.0 (5.0-8.0) URINE PROTEIN NEGATIVE (NEGATIVE) URINE UROBILINOGEN 0.2 EU/dL (0.2-1.0) URINE NITRITE NEGATIVE (NEGATIVE) URINE BLOOD NEGATIVE (NEGATIVE) URINE LEUK ESTERASE NEGATIVE (NEGATIVE) URINE RBC NONE SEEN rbc/hpf (0-1) URINE WBC RARE wbc/hpf (0-1) URINE EPITHELIAL CELLS RARE EPI/hpf (0-5) URINE BACTERIA NONE SEEN (NONE SEEN) URINE COMMENT CULT NOT INDICATED URINE CULTURES ARE SET-UP BASED ON THE FOLLOWING CRITERIA:POSITIVE NITRITEPOSITIVE LEUKOCYTE ESTERASEGREATER THAN 10 WHITE BLOOD CELLSMODERATE (2+) OR GREATER BACTERIA Urine: (NOHEMI: 12/15/2016 01:15) ( MsgRcvd 12/16/2016 01:31) Final results Test Result Flag Units (Reference) URINE NEGATIVE . PROGRESS AND PROCEDURES Course of Care: RE headache, this is modest in severity and gradual in onset. This is not SAH or ICH. There is no evidence of ectopic, volume loss, arrhythmia, seizure, or bleeding. Pt has no risk factors for PE and Wells PE score is 0. I considered DDimer but believe the risk of false positive Ddimer requiring high radiation imaging study is greater than the potential for missed PE. No evidence of toxic or metabolic event. Although not directly provable the most likely cause of today's episode is anxiety resulting in hyperventilation resulting in syncope. Wells clinical prediction rule (PE): No clinical symptoms of DVT, other diagnosis less likely than PE, immobilization or surgery within 4wks, previous DVT or PE or hemoptysis. No malignancy. Heart rate less than 100 per minute. CLINICAL IMPRESSION Syncope. Possible hyperventilation syndrome INSTRUCTIONS (SLOW SHALLOW BREATHS NOT DEEP BREATHS). Prescription Medications: Zofran 4 mg: Take 1 orally every six hours as needed for nausea/vomiting. Dispense ten (10). No refills. Substitution is permissible. Follow-up: Follow up with your doctor in five days. Understanding of the discharge instructions verbalized by patient and family. (Electronically signed by Dallas Lebron MD 12/19/2016 14:21)
--- NOTE | 2016-12-16 02:35 | ED NURSING NOTES ---
Clinical Report - Nurses [facility] [address] [place] [address] 12/15/2016 22:34 Patient: SKY BETH TRIAGE 22:45 12/15/16. BP: 110/79. HR: 100. RR: 17. O2 saturation: 99%. Temp: 98.2 F. Pain level now 02/16. --22:45 Cherelle Chun 22:45 12/15/16. --23:15 Cherelle Chun Triage time 22:38 Dec 15 2016. Acuity: LEVEL 3. Chief Complaint: ANXIETY. 22:45 12/15/16. Alert. No acute distress. SEPSIS SCREEN: Sepsis Screen. Negative (no infection suspected/documented). CHANTELLE COMA SCORE: [place] Coma Scale: 15- eyes open spontaneously (4); best verbal response- oriented x 4 (5); best motor response- obeys commands (6). --22:45 Cherelle Chun 22:46 12/15/16. --22:46 Cherelle Chun. Weight: 58.9 kg stated. Height/Length: 68 inches Per Patient. BMI: 19.7. --22:43 Cherelle Chun. Medications ClonazePAM Oral 0.5 mg, as needed. --22:41 Cherelle Chun. Medication/allergy information source: the patient. --22:45 Cherelle Chun. Allergies None. --22:41 Cherelle Chun. History Arrived by private vehicle. Historian: patient. Accompanied by mother. Primary physician ([facility]). Onset. (Monday). She has had anxiety and describes feelings of depression. Denies sleeping difficulties or having hallucinations. Treatment CONSTRUCTION SAFETY CONSULTANT: (Took half a dose of clonazepam). PAST MEDICAL HX: Anxiety. No history of diabetes mellitus or hypertension. No history of psychiatric illness. Immunizations: up-to-date. Uses an intrauterine device. SOCIAL HX: Heavy tobacco smoker (cigarette)- 1 pack per day. Occasional alcohol use. History of drug use: marijuana. (few times a week). FALL RISK ASSESSMENT: Fall risk assessment completed. No fall risk identified. NUTRITIONAL RISK ASSESSMENT: The nutritional risk assessment revealed no deficiencies. FUNCTIONAL ASSESSMENT: Functional assessment: no impairments noted. LEARNING NEEDS ASSESSMENT: The learning needs assessment revealed no barriers. SKIN INTEGRITY ASSESSMENT: Skin integrity risk assessment completed. No skin integrity risk identified. --22:45 Cherelle Chun SELF HARM ASSESSMENT: A self harm assessment was performed. The patient answered "yes" to the question "Have you recently felt down, depressed, or hopeless?" and "no" to the question "Have you noticed less interest or pleasure in doing things?", "Do you have thoughts of harming or killing yourself?", "Are you here because you tried to hurt yourself?", "Have you ever tried to hurt yourself before today?", "Have you recently had thoughts about harming or killing others?" and "Do you have any dangerous items in your possession?". Family at bedside. --22:46 Cherelle Chun ( Patient reports anxiety attacks that started on Monday. Had previously had anxiety problems, but hadn't for years. Patient is from , who left her. She has been on a "break" from her kids for the past two weeks and was supposed to fly out tonight. Patient reports passing out from anxiety, which has happened to her before. Mother reports "seizure like activity" that occurs with panic attacks. Patient reports current headache and nausea, which she often gets with panic attacks, but headache is worse this time.). --23:15 Cherelle Chun. PROBLEMS: Anxiety Reaction. URI. Sick Contact. Pneumonia. --22:41 Cherelle Chun. Assessment The patient states feels the same. --22:45 Cherelle Chun. Interventions ID band on patient. --22:45 Cherelle Chun. PHYSICAL ASSESSMENT 22:45 12/15/16. Ambulatory to room. GENERAL / NEURO / PSYCH: Alert. Oriented X 4. Appears in no acute distress. Speech within normal limits. Patient's mood/affect appears flat. Poor eye contact. Patient appears calm and cooperative. Patient appears well-nourished and neat and clean. RESPIRATORY: Respirations not labored. CVS: Capillary refill less than 2 seconds. GI / : Abdomen soft and nontender. SKIN: Skin intact. Skin is warm and dry. Skin color is within normal limits. --22:45 Cherelle Chun. NURSING PROGRESS NOTES The plan of care for this patient has been created. Pulse oximeter and NIBP monitor placed on patient; monitor alarms on. Patient gowned. Head of bed elevated. Reassurance given. Two patient identifiers checked. Call light placed in reach. Side rails up x 1. Bed placed in lowest position. Brakes of bed on. Patient ready for evaluation- chart flagged and ED physician and TECHNICAL ADJUSTER notified. --22:45 Cherelle Chun 23:12/15/2016 Zofran ODT (Ondansetron) PO Oral Disintegrating Tablets 4 mg given. Allergies verified and confirmed 5 rights. --23: Cherelle Chun accelerator operator, pulse oximeter and NIBP monitor placed on patient; monitor alarms on. --00:13 Cherelle Chun 00:13 12/16/16. BP: 115/88 taken while standing. HR: 100. O2 saturation: 100% on room air. 00:06 12/16/16. BP: 109/80 taken while sitting. HR: 73. O2 saturation: 100% on room air. 00:04 12/16/16. BP: 109/73 taken while lying. HR: 76. O2 saturation: 100% on room air. --00:13 Cherelle Chun 00:05 12/16/16. ( Patient notified of need for urine sample. States that she is unable to at this time.). --00:21 Cherelle Chun 00:31. EKG was performed by a tech and shown to the ED physician. --00:31 Surekha Pride ER Tech1 00:26 12/16/2016 Site #1 started via IV in the left antecubital space with an 20g angiocath, with aseptic technique and good blood return; one attempt. Blood drawn: rainbow set. Labeled in the presence of the patient and sent to the lab. Saline lock flushed with 10 mL saline. --00:31 Cherelle Chun 01:12/16/16. Care transferred and report given (Cristian). --01: Jett Chunyssa 01:23 12/16/16. BP: 95/68. HR: 70. RR: 16. O2 saturation: 100%. --01:27 Cristian Briseno R.N. Cardiac rhythm: normal sinus rhythm. ( Patient was up to the BR to void, steady gait and in no distress. Urine sent to the lab. Patient settled back to bed, with VS stable. Pt's mom at the bedside.). GENERAL / NEURO / PSYCH: Alert. Oriented X 4. Patient appears calm and cooperative. Affect appears normal. RESPIRATORY: No respiratory distress. SKIN: Skin is warm and dry. Skin color within normal limits. --01:27 Cristian Briseno R.N. 02:50 12/16/2016 Hydrocodone-APAP (Hydrocodone-Acetaminophen) PO 5/325 mg Tablets 1 tab given. Allergies verified, confirmed 5 rights and sedative warning given to the patient and patient's family. --02:55 Cristian Briseno R.N. 02:50 12/16/2016 Zofran ODT (Ondansetron) PO Oral Disintegrating Tablets 4 mg given. Allergies verified and confirmed 5 rights. --02:55 Cristian Briseno R.N. 02:51 12/16/2016 Site #1 removed upon discharge. Manual pressure applied. --02:56 Cristian Briseno R.N. DISPOSITION / DISCHARGE Condition at departure: improved. No learning barriers present. Discharge instructions provided and reviewed with the patient. Reviewed medication(s) side effects, precautions, dosing and course information. Reviewed referral to a primary care physician. Patient verbalized understanding. Written instructions provided in [place]. The patient was discharged home and accompanied by parent. She left the Emergency Department ambulatory and via private vehicle. Parent driving. --02:57 Cristian Briseno R.N. 02:56 12/16/16. BP: 101/68. HR: 75. RR: 16. O2 saturation: 100%. Temp: 97.9 F. Pain level now: 0/10. --02:57 Finn, Christopher, R.N. Departure time: 02:58. --02:58 Cristian Briseno R.N. Locked/Released at 12/16/2016 2:58 by Cristian Briseno R.N.
--- NOTE | 2016-12-19 14:22 | ED DISCHARGE INSTRUCTIONS ---
Patient: SKY BETH General Instructions [facility] VisitID: [id number] [place] [address] 26y, F Registration Date/Time: 12/15/2016 Syncope. INSTRUCTIONS (SLOW SHALLOW BREATHS NOT DEEP BREATHS). Prescription Medications: Zofran 4 mg: Take 1 orally every six hours as needed for nausea/vomiting. Dispense ten (10). No refills. Substitution is permissible. Follow-up: Follow up with your doctor in five days. Understanding of the discharge instructions verbalized by patient and family. ADDITIONAL INFORMATION Fainting:Vagal Reaction Fainting (syncope) is a temporary loss of consciousness ("passing out"). It occurs when blood flow to the brain is reduced. Your doctor believes that your episode was due to a vagal reaction. This condition is not a sign of serious disease. A vagal reaction is a reflex response that causes the pulse to slow down or the blood vessels to dilate. This causes the blood pressure to fall, reducing the blood flow to the brain if you are standing or sitting. That results in dizziness, near-fainting or fainting. Lying down usually stops the reaction within 60 seconds. This reflex response can occur during sudden fear, severe pain, emotional stress, overexertion, overheating, hunger, nausea or vomiting, prolonged standing or standing up after sitting or lying for a long time. Home Care: 1) Rest today and resume your normal activities as soon as you are feeling back to normal. 2) If you become light-headed or dizzy, lie down immediately or sit with your head lowered between your knees. Follow Up with your doctor as instructed. Get Prompt Medical Attention if any of the following occur: -- Another fainting spell occurs, which is not explained by the common causes listed above -- Chest, arm, neck, jaw, back or abdominal pain -- Shortness of breath -- Severe headache or seizure -- Blood in vomit, stools (black or red color) -- Unexpected vaginal bleeding -- Palpitations (very rapid or very slow or irregular heart beat) -- Signs of stroke: Weakness of an arm or leg or one side of the face Difficulty with speech or vision Extreme drowsiness, confusion, dizziness or fainting Hyperventilation Syndrome Hyperventilation Syndrome is a condition in which you lose control of your breathing. You may find yourself breathing too fast and/or too deep. This can be triggered by pain, anxiety and emotional stress. If hyperventilation continues for more than a few minutes, it can lead to a number of frightening symptoms, such as: Numbness and tingling of the hands, feet and face Clenching of the fingers or toes Dizziness Feeling like you cannot get enough air Chest pains Fainting or feeling like you are going to faint Once these symptoms begin, it is often hard to stop them because they lead to a cycle of more anxiety and more hyperventilation. It is important to understand that this is not a life-threatening condition and it will pass once you are able to relax. Relaxation and stress management methods can be learned and practiced in advance. These can help in the event of a future attack. Home Care: 1) Rest today until feeling back to normal. 2) If symptoms return: Sit or lie down. Remember that what is happening to you is temporary and will pass. Use the relaxation methods you have learned. It is no longer recommended to breathe into a paper bag. Follow Up with your doctor or as directed by our staff if symptoms recur. Get Prompt Medical Attention if any of the following occur: Increasing shortness of breath Fever of 100.0 F (38 C) or higher, or as directed by your healthcare provider Coughing up blood Chest pain that is made worse with each breath Redness, pain or swelling of the leg Ringing in your ears, Severe headache Weakness or fainting You have been given the following additional information: Syncope, Vasovagal Hyperventilation Syndrome (Electronically signed by Dallas Lebron MD 12/19/2016 14:21)
--- NOTE | 2016-12-19 14:22 | ED MED RECONCILIATION SUMMARY ---
Patient: SKY BETH Medication Reconciliation Report [facility] VisitID: [id number] [place] [address] 26y, F Registration Date/Time: 12/15/2016 Weight: 58.9 kg Height/Length: 68 in. BMI: 19.7 ALLERGIES: None The patient's Home Medications are listed below: THE FOLLOWING MEDICATIONS NEED TO BE RECONCILED: ClonazePAM Oral 0.5 mg The source(s) of the original Home Medication information: patient The following Medications were given to the patient in the Emergency Department: Zofran ODT [PO] PO 4 mg, administered: 12/15/2016 11:09:00 PM Hydrocodone-APAP [PO] PO 1 tab, administered: 12/16/2016 2:50:00 AM Zofran ODT [PO] PO 4 mg, administered: 12/16/2016 2:50:00 AM The following Medications were prescribed to the patient: Zofran 4 mg: Take 1 orally every six hours as needed for nausea/vomiting. Dispense ten (10). No refills. Substitution is permissible. -- Dallas Lebron MD
--- NOTE | 2016-12-19 14:22 | ED MAR SUMMARY ---
..... Medication Administration Record [facility] [address] [place] [address] Patient: SKY BETH Visit ID: [id number] 26y, F Weight: 58.9 kg Height/Length: 68 in BMI: 19.7 ALLERGIES: None Given 23:09 12/15/2016 Cherelle Chun, Medication Administered: ZOFRAN ODT [PO] (ONDANSETRON), Dose: 4 mg Oral Disintegrating Tablets PO. Medication Ordered: Zofran ODT PO 4 mg (NOW). Given 02:50 12/16/2016 Cristian Briseno RLeticiaN. Medication Administered: HYDROCODONE-APAP [PO] (HYDROCODONE-ACETAMINOPHEN), Dose: 1 tab 5/325 mg Tablets PO. Medication Ordered: Hydrocodone-APAP PO 5/325 mg (2 tabs). Given 02:50 12/16/2016 Cristian Briseno RLeticiaN. Medication Administered: ZOFRAN ODT [PO] (ONDANSETRON), Dose: 4 mg Oral Disintegrating Tablets PO. Medication Ordered: Zofran ODT PO 4 mg (NOW).
--- NOTE | 2016-12-19 14:22 | ED MAR SUMMARY ---
..... Medication Administration Record [facility] [address] [place] [address] Patient: SKY BETH Visit ID: [id number] 26y, F Weight: 58.9 kg Height/Length: 68 in BMI: 19.7 ALLERGIES: None Given 23:09 12/15/2016 Cherelle Chun, Medication Administered: ZOFRAN ODT [PO] (ONDANSETRON), Dose: 4 mg Oral Disintegrating Tablets PO. Medication Ordered: Zofran ODT PO 4 mg (NOW). Given 02:50 12/16/2016 Cristian Briseno RLeticiaN. Medication Administered: HYDROCODONE-APAP [PO] (HYDROCODONE-ACETAMINOPHEN), Dose: 1 tab 5/325 mg Tablets PO. Medication Ordered: Hydrocodone-APAP PO 5/325 mg (2 tabs). Given 02:50 12/16/2016 Cristian Briseno RLeticiaN. Medication Administered: ZOFRAN ODT [PO] (ONDANSETRON), Dose: 4 mg Oral Disintegrating Tablets PO. Medication Ordered: Zofran ODT PO 4 mg (NOW).
--- NOTE | 2016-12-19 14:22 | ED MED RECONCILIATION SUMMARY ---
Patient: SKY BETH Medication Reconciliation Report [facility] VisitID: [id number] [place] [address] 26y, F Registration Date/Time: 12/15/2016 Weight: 58.9 kg Height/Length: 68 in. BMI: 19.7 ALLERGIES: None The patient's Home Medications are listed below: THE FOLLOWING MEDICATIONS NEED TO BE RECONCILED: ClonazePAM Oral 0.5 mg The source(s) of the original Home Medication information: patient The following Medications were given to the patient in the Emergency Department: Zofran ODT [PO] PO 4 mg, administered: 12/15/2016 11:09:00 PM Hydrocodone-APAP [PO] PO 1 tab, administered: 12/16/2016 2:50:00 AM Zofran ODT [PO] PO 4 mg, administered: 12/16/2016 2:50:00 AM The following Medications were prescribed to the patient: Zofran 4 mg: Take 1 orally every six hours as needed for nausea/vomiting. Dispense ten (10). No refills. Substitution is permissible. -- Dallas Lebron MD
== END 2016-12-16 02:55 | disposition home or self-care (01) ==
LOC: ED SRH 22:32
DX: R55 Syncope and collapse (principal); F41.9 Anxiety disorder, unspecified; R51 Headache; R11.10 Vomiting, unspecified
CPT/HCPCS: 90004; 90100; 93070; 95059